=== PATIENT | female | born 1960 | race Caucasian/White ===

== ENCOUNTER 2018-06-30 07:01 | Emergency (ER) | payer OTHER, MEDICAID ==
[~2018-06-30] VITALS: Ht 170.2 cm; Wt 65.8 kg
[~2018-06-30 07:01] MED LIST: AMLO10TA88 PO; ARIP2TAB11 PO; ASPI-1155 PO; BUPR-120 PO; BUPR300T55 PO; DICL100G19 TP; KLO2 PO; LOVA20TA2 PO; METO50TA16 PO; OMEP20CA10 PO; ONDA4TAB5 PO; OXCA300O PO; PREMVAG VG; SUCR1TAB78 PO; TRAM50TA2 PO; ZOLP10TA6 PO; [UNRECOGNIZED DRUG - CODE] PO; [UNRECOGNIZED DRUG - CODE] PO
[2018-06-30 07:32] VITALS: BP_SYST 99
[2018-06-30] MEDS ORDERED: NACL 0.9% 1,000 ML IV ONE (07:50)
[2018-06-30 08:10] LABS: BASOPHILS % (AUTO) 0.4 % (0.0-2.0); EOSINOPHILS # (AUTO) 0.1 K/uL (0.0-0.4); EOSINOPHILS % (AUTO) 0.8 % (0.0-4.0); HEMATOCRIT 34.9 % (36-48); HEMOGLOBIN 11.6 g/dL (12.0-16.0); LYMPHOCYTES # (AUTO) 1.6 K/uL (1.0-5.5); LYMPHOCYTES % (AUTO) 18.1 % (20.5-51.5); MEAN CORPUSCULAR HEMOGLOBIN 32 pg (27-31); MEAN CORPUSCULAR HGB CONC 33 % (32-36); MEAN CORPUSCULAR VOLUME 95 fL (79.0-98.0); MONOCYTES # (AUTO) 0.6 K/uL (0.0-1.0); MONOCYTES % (AUTO) 7.1 % (1.7-9.3); NEUTROPHILS # (AUTO) 6.3 K/uL (1.8-7.7); NEUTROPHILS % (AUTO) 73.6 % (40.0-70.0); PLATELET COUNT (AUTO) 294 K/uL (130-430); RED BLOOD CELL COUNT(AUTO) 3.67 MIL/uL (4.2-6.2); RED CELL DISTRIBUTION WIDTH 12.9 % (9.0-15.0); WHITE BLOOD COUNT (AUTO) 8.6 K/uL (4.8-10.8)
[2018-06-30 08:24] LABS: CALCIUM 9.2 mg/dL (8.4-11.0); CREATININE 0.87 mg/dL (0.55-1.30)
[2018-06-30 08:28] LABS: INR 1.1 (0.8-1.2); PROTHROMBIN TIME 11.2 SECS (9.5-12.5)
[2018-06-30 08:29] LABS: ALBUMIN 3.7 g/dL (3.4-4.8); TOTAL BILIRUBIN 0.5 mg/dL (0.0-1.0)
[2018-06-30] MEDS ORDERED: SILVER NITRATE APPLICATOR 1 STICK STICK..EA. TP ONE ×2 (11:20→11:30)
[2018-06-30 11:45] VITALS: BP_SYST 99
== END 2018-06-30 11:45 | disposition home or self-care (01) ==
LOC: SED 07:01
DX: S31.41XA Laceration without foreign body of vagina and vulva, initial encounter (principal); N93.8 Other specified abnormal uterine and vaginal bleeding; I10 Essential (primary) hypertension; F32.9 Major depressive disorder, single episode, unspecified; F41.9 Anxiety disorder, unspecified; F20.9 Schizophrenia, unspecified; Z90.89 Acquired absence of other organs; Z88.1 Allergy status to other antibiotic agents; Z88.5 Allergy status to narcotic agent; Z88.6 Allergy status to analgesic agent; Z91.011 Allergy to milk products; Z79.899 Other long term (current) drug therapy; X58.XXXA Exposure to other specified factors, initial encounter; Y93.89 Activity, other specified; Y92.89 Other specified places as the place of occurrence of the external cause; Y99.8 Other external cause status
CPT/HCPCS: 36415; 76830; 76857; 80053; 83690; 85025; 85610; 85730; 96360; 99285; J7030

== ENCOUNTER 2018-11-28 07:25 | Emergency (ER) | payer OTHER, MEDICAID ==
[~2018-11-28] VITALS: Ht 170.2 cm; Wt 77.1 kg
[2018-11-28 07:25] VITALS: BP_SYST 94
[2018-11-28 09:00] VITALS: BP_SYST 83
== END 2018-11-28 09:00 | disposition home or self-care (01) ==
LOC: SED 07:25
DX: K91.841 Postprocedural hemorrhage of a digestive system organ or structure following other procedure (principal); I10 Essential (primary) hypertension; F32.9 Major depressive disorder, single episode, unspecified; F41.9 Anxiety disorder, unspecified; G43.909 Migraine, unspecified, not intractable, without status migrainosus; F90.9 Attention-deficit hyperactivity disorder, unspecified type; F20.9 Schizophrenia, unspecified; Z88.5 Allergy status to narcotic agent; Z88.6 Allergy status to analgesic agent; Z88.8 Allergy status to other drugs, medicaments and biological substances; Z91.011 Allergy to milk products; Z79.82 Long term (current) use of aspirin; Z79.899 Other long term (current) drug therapy
CPT/HCPCS: 99283

== ENCOUNTER 2019-07-02 15:23 | Inpatient (IN) | payer OTHER, MEDICAID ==
[~2019-07-02] VITALS: Ht 170.2 cm; Wt 70.3 kg
[~2019-07-02 15:23] MED LIST changes: -OMEP20CA10 PO; +OMEP20CA11 PO
[2019-07-02 17:56] VITALS: BP_SYST 136
[2019-07-02] MEDS ORDERED: ACETAMINOPHEN/CODEINE 300 MG-30 MG TABLET PO PRN (18:45)
[2019-07-02] MEDS ORDERED: DIPHENOXYLATE HCL/ATROP SULF 2.5 MG TAB PO PRN (18:45)
[2019-07-02] MEDS ORDERED: COMMUNICATION ORDER XX ONE (19:15)
[2019-07-02] MEDS ORDERED: ONDANSETRON 4 MG ODT TAB PO SCH (19:15)
[2019-07-02] MEDS ORDERED: ONDANSETRON HCL 4 MG/2 ML VIAL IVP PRN (19:30)
[2019-07-02 19:53] LABS: MEAN CORPUSCULAR VOLUME 67 fL (79.0-98.0); RED CELL DISTRIBUTION WIDTH 18.6 % (9.0-15.0); WHITE BLOOD COUNT (AUTO) 5.1 K/uL (4.8-10.8)
[2019-07-02 20:00] LABS: HEMATOCRIT 23.1 % (36-48); MEAN CORPUSCULAR HEMOGLOBIN 21 pg (27-31); MEAN CORPUSCULAR HGB CONC 31 % (32-36); PLATELET COUNT (AUTO) 279 K/uL (130-430); RED BLOOD CELL COUNT(AUTO) 3.45 MIL/uL (4.2-6.2)
[2019-07-02 20:09] LABS: HEMOGLOBIN 7.1 g/dL (12.0-16.0)
[2019-07-02 20:11] LABS: ALBUMIN 3.6 g/dL (3.4-4.8); CALCIUM 8.6 mg/dL (8.4-11.0); CREATININE 0.84 mg/dL (0.55-1.30); POTASSIUM 3.7 mmol/L (3.5-5.1); TOTAL BILIRUBIN 0.3 mg/dL (0.0-1.0)
[2019-07-02 20:27] LABS: TOTAL IRON BIND. CAPACITY 408 ug/dL (250-450)
[2019-07-02 20:30] LABS: BAND % (MANUAL) 1 % (0-6); BASOPHILS % (MANUAL) 0 % (0-2); EOSINOPHILS % (MANUAL) 6 % (0-7); LYMPHOCYTES % (MANUAL) 26 % (20-46); MONOCYTES % (MANUAL) 6 % (0-11)
[2019-07-02] MEDS: CONJUGATED ESTROGENS VAGINAL CREAM 42.5 GM .APPL VG SCH ×2 (21:00→22:24)
[2019-07-02 21:30] VITALS: BP_SYST 131
[2019-07-02] MEDS: PANTOPRAZOLE SODIUM 40 MG/VIAL (PROTONIX) IVP SCH (22:21)
[2019-07-02] MEDS: clonazePAM 0.5 MG TABLET PO SCH (22:22)
[2019-07-02] MEDS: METOPROLOL TARTRATE 50 MG TABLET PO SCH (22:22)
[2019-07-02] MEDS: buPROPion HCL 150 MG XL TAB PO SCH (22:23)
[2019-07-02] MEDS: ZOLPIDEM TARTRATE 5 MG TABLET PO SCH (22:23)
[2019-07-02] MEDS: traMADol HCL HCL 50 MG TABLET (ULTRAM) PO SCH (22:23)
[2019-07-03 01:41] VITALS: BP_SYST 121
[2019-07-03] MEDS: FLU VACC QS2019-20 36MOS UP/PF 60 MCG/0.5 ML SYRINGE I.M. PRN (05:09)
[2019-07-03] MEDS: SUCRALFATE 1 GM TABLET PO SCH ×3 (06:15→17:54)
[2019-07-03] MEDS: PANTOPRAZOLE SODIUM 40 MG/VIAL (PROTONIX) IVP SCH ×2 (10:12→20:41)
[2019-07-03] MEDS: buPROPion HCL 150 MG XL TAB PO SCH ×2 (10:13→20:43)
[2019-07-03] MEDS: MULTIVITAMINS TAB 1 TABLET PO SCH (10:13)
[2019-07-03] MEDS: OXcarbazepine 150 MG TABLET(TRILEPTAL) PO SCH (10:13)
[2019-07-03] MEDS: clonazePAM 0.5 MG TABLET PO SCH ×3 (10:13→20:43)
[2019-07-03] MEDS: METOPROLOL TARTRATE 50 MG TABLET PO SCH ×2 (10:14→20:42)
[2019-07-03] MEDS: amLODIPine BESYLATE 10 MG TABLET PO SCH (10:14)
[2019-07-03] MEDS: traMADol HCL HCL 50 MG TABLET (ULTRAM) PO SCH ×3 (10:15→20:42)
[2019-07-03 12:32] VITALS: BP_SYST 115
[2019-07-03] MEDS: ARIPiprazole 2 MG TAB PO SCH (13:30)
[2019-07-03 16:35] VITALS: BP_SYST 112
[2019-07-03] MEDS: ATORVASTATIN 10 MG TABLET PO SCH (17:54)
[2019-07-03] MEDS ORDERED: LOVASTATIN 20 MG TABLET PO SCH (18:00)
[2019-07-03 20:07] VITALS: BP_SYST 105
[2019-07-03] MEDS: SOD FERRIC GLUC COMPLEX/SUC 125 MG in NS 100 ML IV SCH (20:41)
[2019-07-03] MEDS: CONJUGATED ESTROGENS VAGINAL CREAM 42.5 GM .APPL VG SCH (20:43)
[2019-07-03] MEDS: ZOLPIDEM TARTRATE 5 MG TABLET PO SCH (20:43)
[2019-07-04 00:17] VITALS: BP_SYST 117
[2019-07-04] MEDS: SUCRALFATE 1 GM TABLET PO SCH ×3 (06:52→17:44)
[2019-07-04 07:41] LABS: CALCIUM 8.7 mg/dL (8.4-11.0); CREATININE 0.66 mg/dL (0.55-1.30); PHOSPHORUS 4.5 mg/dL (2.7-4.5); POTASSIUM 4.4 mmol/L (3.5-5.1)
[2019-07-04 07:53] LABS: BASOPHILS # (AUTO) 0.1 K/uL (0.0-0.2); BASOPHILS % (AUTO) 0.9 % (0.0-2.0); EOSINOPHILS # (AUTO) 0.1 K/uL (0.0-0.4); EOSINOPHILS % (AUTO) 2.3 % (0.0-4.0); HEMATOCRIT 30.4 % (36-48); HEMOGLOBIN 9.6 g/dL (12.0-16.0); LYMPHOCYTES # (AUTO) 2.2 K/uL (1.0-5.5); LYMPHOCYTES % (AUTO) 38.4 % (20.5-51.5); MEAN CORPUSCULAR HEMOGLOBIN 23 pg (27-31); MEAN CORPUSCULAR HGB CONC 32 % (32-36); MEAN CORPUSCULAR VOLUME 72 fL (79.0-98.0); MONOCYTES # (AUTO) 0.6 K/uL (0.0-1.0); MONOCYTES % (AUTO) 11.2 % (1.7-9.3); NEUTROPHILS # (AUTO) 2.7 K/uL (1.8-7.7); NEUTROPHILS % (AUTO) 47.2 % (40.0-70.0); PLATELET COUNT (AUTO) 258 K/uL (130-430); RED BLOOD CELL COUNT(AUTO) 4.24 MIL/uL (4.2-6.2); RED CELL DISTRIBUTION WIDTH 22.4 % (9.0-15.0); WHITE BLOOD COUNT (AUTO) 5.7 K/uL (4.8-10.8)
[2019-07-04 08:15] VITALS: BP_SYST 123
[2019-07-04] MEDS: PANTOPRAZOLE SODIUM 40 MG/VIAL (PROTONIX) IVP SCH ×2 (08:47→22:22)
[2019-07-04] MEDS: clonazePAM 0.5 MG TABLET PO SCH ×3 (08:47→22:25)
[2019-07-04] MEDS: traMADol HCL HCL 50 MG TABLET (ULTRAM) PO SCH ×3 (08:48→22:24)
[2019-07-04] MEDS: OXcarbazepine 150 MG TABLET(TRILEPTAL) PO SCH (08:48)
[2019-07-04] MEDS: MULTIVITAMINS TAB 1 TABLET PO SCH (08:48)
[2019-07-04] MEDS: buPROPion HCL 150 MG XL TAB PO SCH ×2 (08:48→22:26)
[2019-07-04] MEDS: amLODIPine BESYLATE 10 MG TABLET PO SCH (08:48)
[2019-07-04] MEDS: METOPROLOL TARTRATE 50 MG TABLET PO SCH ×2 (08:49→22:24)
[2019-07-04 12:00] VITALS: BP_SYST 110
[2019-07-04] MEDS: ARIPiprazole 2 MG TAB PO SCH (14:32)
[2019-07-04 16:00] VITALS: BP_SYST 117
[2019-07-04] MEDS: ATORVASTATIN 10 MG TABLET PO SCH (17:44)
[2019-07-04] MEDS: SOD FERRIC GLUC COMPLEX/SUC 125 MG in NS 100 ML IV SCH (18:55)
[2019-07-04] MEDS: ZOLPIDEM TARTRATE 5 MG TABLET PO SCH (22:25)
[2019-07-04] MEDS: CONJUGATED ESTROGENS VAGINAL CREAM 42.5 GM .APPL VG SCH (22:33)
[2019-07-05 00:37] VITALS: BP_SYST 117
[2019-07-05] MEDS: SUCRALFATE 1 GM TABLET PO SCH ×3 (06:25→17:05)
[2019-07-05 07:06] LABS: CALCIUM 8.4 mg/dL (8.4-11.0); CREATININE 0.72 mg/dL (0.55-1.30); POTASSIUM 4.5 mmol/L (3.5-5.1)
[2019-07-05 07:08] LABS: BASOPHILS # (AUTO) 0.1 K/uL (0.0-0.2); BASOPHILS % (AUTO) 1.3 % (0.0-2.0); EOSINOPHILS # (AUTO) 0.2 K/uL (0.0-0.4); EOSINOPHILS % (AUTO) 3.6 % (0.0-4.0); HEMATOCRIT 32.7 % (36-48); HEMOGLOBIN 10.3 g/dL (12.0-16.0); LYMPHOCYTES # (AUTO) 1.5 K/uL (1.0-5.5); LYMPHOCYTES % (AUTO) 29.4 % (20.5-51.5); MEAN CORPUSCULAR HEMOGLOBIN 23 pg (27-31); MEAN CORPUSCULAR HGB CONC 32 % (32-36); MEAN CORPUSCULAR VOLUME 72 fL (79.0-98.0); MONOCYTES # (AUTO) 0.7 K/uL (0.0-1.0); MONOCYTES % (AUTO) 14.3 % (1.7-9.3); NEUTROPHILS # (AUTO) 2.6 K/uL (1.8-7.7); NEUTROPHILS % (AUTO) 51.4 % (40.0-70.0); PLATELET COUNT (AUTO) 291 K/uL (130-430); RED BLOOD CELL COUNT(AUTO) 4.58 MIL/uL (4.2-6.2); RED CELL DISTRIBUTION WIDTH 22.9 % (9.0-15.0); WHITE BLOOD COUNT (AUTO) 5.1 K/uL (4.8-10.8)
[2019-07-05 08:00] VITALS: BP_SYST 128
[2019-07-05] MEDS: PANTOPRAZOLE SODIUM 40 MG/VIAL (PROTONIX) IVP SCH ×2 (08:41→21:58)
[2019-07-05] MEDS: DICLOFENAC SODIUM 1% TP SCH ×2 (09:00→21:00)
[2019-07-05] MEDS: amLODIPine BESYLATE 10 MG TABLET PO SCH ×2 (09:00→14:44)
[2019-07-05 11:11] VITALS: BP_SYST 143
[2019-07-05] MEDS ORDERED: MIDAZOLAM HCL 5 MG/5 ML VIAL ONE ×2 (11:24→11:25)
[2019-07-05] MEDS ORDERED: fentaNYL CITRATE/PF 100 MCG/2 ML AMP ONE ×2 (11:24)
[2019-07-05] MEDS ORDERED: BENZOCAINE 20% 0.5mL UD SPRAY MM ONE (11:25)
[2019-07-05] MEDS ORDERED: SIMETHICONE 40 MG/0.6 ML ML ONE (11:25)
[2019-07-05] MEDS ORDERED: GOLYTELY / COLYTE SOLUTION 4 LITERS PO ONE (13:30)
[2019-07-05] MEDS ORDERED: MIDAZOLAM HCL 5 MG/ML VIAL (VERSED) IV ONE (14:30)
[2019-07-05] MEDS ORDERED: fentaNYL CITRATE/PF 100 MCG/2 ML AMP IVP ONE (14:30)
[2019-07-05 14:42] VITALS: BP_SYST 112
[2019-07-05] MEDS: MULTIVITAMINS TAB 1 TABLET PO SCH (14:43)
[2019-07-05] MEDS: METOPROLOL TARTRATE 50 MG TABLET PO SCH ×2 (14:44→21:57)
[2019-07-05] MEDS: buPROPion HCL 150 MG XL TAB PO SCH ×2 (14:44→22:26)
[2019-07-05] MEDS: traMADol HCL HCL 50 MG TABLET (ULTRAM) PO SCH ×2 (14:45→21:57)
[2019-07-05] MEDS: OXcarbazepine 150 MG TABLET(TRILEPTAL) PO SCH (14:46)
[2019-07-05] MEDS: clonazePAM 0.5 MG TABLET PO SCH ×2 (14:46→21:56)
[2019-07-05] MEDS: ARIPiprazole 2 MG TAB PO SCH (14:54)
[2019-07-05 16:57] VITALS: BP_SYST 111
[2019-07-05] MEDS: ATORVASTATIN 10 MG TABLET PO SCH (17:05)
[2019-07-05] MEDS: SOD FERRIC GLUC COMPLEX/SUC 125 MG in NS 100 ML IV SCH (18:09)
[2019-07-05 20:00] VITALS: BP_SYST 142
[2019-07-05] MEDS: CONJUGATED ESTROGENS VAGINAL CREAM 42.5 GM .APPL VG SCH (21:00)
[2019-07-05] MEDS: ZOLPIDEM TARTRATE 5 MG TABLET PO SCH (21:58)
[2019-07-06 00:15] VITALS: BP_SYST 141
[2019-07-06 07:45] VITALS: BP_SYST 119
[2019-07-06] MEDS: PANTOPRAZOLE SODIUM 40 MG/VIAL (PROTONIX) IVP SCH ×2 (08:30→20:55)
[2019-07-06] MEDS: DICLOFENAC SODIUM 1% TP SCH ×2 (09:00→21:00)
[2019-07-06] MEDS ORDERED: fentaNYL CITRATE/PF 100 MCG/2 ML AMP ONE ×2 (11:18→11:19)
[2019-07-06] MEDS ORDERED: MIDAZOLAM HCL 5 MG/5 ML VIAL ONE ×2 (11:19→11:20)
[2019-07-06] MEDS ORDERED: SIMETHICONE 40 MG/0.6 ML ML ONE (11:20)
[2019-07-06] MEDS: SUCRALFATE 1 GM TABLET PO SCH ×2 (11:30→17:09)
[2019-07-06 12:33] VITALS: BP_SYST 152
[2019-07-06] MEDS: clonazePAM 0.5 MG TABLET PO SCH ×2 (14:34→20:57)
[2019-07-06] MEDS: MULTIVITAMINS TAB 1 TABLET PO SCH (14:35)
[2019-07-06] MEDS: OXcarbazepine 150 MG TABLET(TRILEPTAL) PO SCH (14:35)
[2019-07-06] MEDS: traMADol HCL HCL 50 MG TABLET (ULTRAM) PO SCH ×2 (14:35→20:57)
[2019-07-06] MEDS: buPROPion HCL 150 MG XL TAB PO SCH ×2 (14:42→20:56)
[2019-07-06] MEDS: METOPROLOL TARTRATE 50 MG TABLET PO SCH ×2 (14:42→20:56)
[2019-07-06] MEDS: ARIPiprazole 2 MG TAB PO SCH (14:43)
[2019-07-06] MEDS: amLODIPine BESYLATE 10 MG TABLET PO SCH (14:43)
[2019-07-06 17:09] VITALS: BP_SYST 132
[2019-07-06] MEDS: ATORVASTATIN 10 MG TABLET PO SCH (17:09)
[2019-07-06] MEDS: SOD FERRIC GLUC COMPLEX/SUC 125 MG in NS 100 ML IV SCH (17:57)
[2019-07-06] MEDS: ZOLPIDEM TARTRATE 5 MG TABLET PO SCH (20:55)
[2019-07-06] MEDS: CONJUGATED ESTROGENS VAGINAL CREAM 42.5 GM .APPL VG SCH (21:00)
[2019-07-07 00:02] VITALS: BP_SYST 92
[2019-07-07] MEDS: SUCRALFATE 1 GM TABLET PO SCH ×3 (07:00→16:50)
[2019-07-07] MEDS: DICLOFENAC SODIUM 1% TP SCH (09:00)
[2019-07-07] MEDS: ARIPiprazole 2 MG TAB PO SCH (09:00)
[2019-07-07] MEDS ORDERED: GASTROGRAFIN 120 ML ONE (09:16)
[2019-07-07] MEDS: PANTOPRAZOLE SODIUM 40 MG/VIAL (PROTONIX) IVP SCH (10:54)
[2019-07-07] MEDS: clonazePAM 0.5 MG TABLET PO SCH ×2 (10:55→15:47)
[2019-07-07] MEDS: METOPROLOL TARTRATE 50 MG TABLET PO SCH (10:55)
[2019-07-07] MEDS: OXcarbazepine 150 MG TABLET(TRILEPTAL) PO SCH (10:56)
[2019-07-07] MEDS: MULTIVITAMINS TAB 1 TABLET PO SCH (10:56)
[2019-07-07] MEDS: amLODIPine BESYLATE 10 MG TABLET PO SCH (10:56)
[2019-07-07] MEDS: traMADol HCL HCL 50 MG TABLET (ULTRAM) PO SCH ×2 (10:57→15:47)
[2019-07-07] MEDS: buPROPion HCL 150 MG XL TAB PO SCH (10:57)
[2019-07-07] MEDS ORDERED: CHOLECALCIFEROL (VITAMIN D3) 2,000 UNIT TABLET PO SCH (11:00)
[2019-07-07] MEDS ORDERED: CHOLECALCIFEROL (VITAMIN D3) 2,000 UNIT TABLET PO ONE (11:30)
[2019-07-07 15:23] VITALS: BP_SYST 104
[2019-07-07 16:12] VITALS: BP_SYST 104
[2019-07-07] MEDS: FLU VACC QS2019-20 36MOS UP/PF 60 MCG/0.5 ML SYRINGE I.M. PRN (16:24)
[2019-07-07] MEDS: SOD FERRIC GLUC COMPLEX/SUC 125 MG in NS 100 ML IV SCH (16:50)
[2019-07-07] MEDS: ATORVASTATIN 10 MG TABLET PO SCH (17:08)
[2019-07-08] MEDS ORDERED: CHOLECALCIFEROL (VITAMIN D3) 2,000 UNIT TABLET PO SCH (09:00)
== END 2019-07-07 19:05 | disposition home or self-care (01) | DRG 393 ==
LOC: SMU 16:36
PROVIDERS: ADMIT Family Medicine; ATTEND Family Medicine
PROC: 30233N1 Transfusion of Nonautologous Red Blood Cells into Peripheral Vein, Percutaneous Approach (ICD-10-PCS; 2019-07-03)
PROC: 0DB68ZX Excision of Stomach, Via Natural or Artificial Opening Endoscopic, Diagnostic (ICD-10-PCS; 2019-07-05)
PROC: 0DJD8ZZ Inspection of Lower Intestinal Tract, Via Natural or Artificial Opening Endoscopic (ICD-10-PCS; principal; 2019-07-06 11:52)
DX: K64.8 Other hemorrhoids (principal); K29.71 Gastritis, unspecified, with bleeding; E87.1 Hypo-osmolality and hyponatremia; M19.90 Unspecified osteoarthritis, unspecified site; I10 Essential (primary) hypertension; E78.5 Hyperlipidemia, unspecified; D50.9 Iron deficiency anemia, unspecified; K64.4 Residual hemorrhoidal skin tags; K44.9 Diaphragmatic hernia without obstruction or gangrene; F31.9 Bipolar disorder, unspecified; Z88.8 Allergy status to other drugs, medicaments and biological substances; Z88.5 Allergy status to narcotic agent; Z79.899 Other long term (current) drug therapy
CPT/HCPCS: 36415; 43239; 45378; 74270-TC; 76700-TC; 76830-TC; 76857; 80048; 80053; 82272; 83540-TC; 83550-TC; 83735-TC; 84100-TC; 85007; 85025; 85027; 86886; 86900; 86901; 86920; 87081; 88305; 88313; C9113; J2250; J2916; J3010; J7040; J7050; P9021; Q9963

== ENCOUNTER 2021-09-17 08:11 | Emergency (ER) | payer OTHER, MEDICAID, SELFPAY ==
[~2021-09-17] VITALS: Ht 170.2 cm; Wt 85.3 kg
[~2021-09-17 08:11] MED LIST changes: -ARIP2TAB11 PO; +ARIP2TAB20 PO; -ASPI-1155 PO; -OMEP20CA11 PO; +OMEP20CA15 PO
[2021-09-17 08:15] VITALS: BP_SYST 119
[2021-09-17] MEDS ORDERED: IBUP-1969 PO (09:59)
[2021-09-17] MEDS ORDERED: HYDR-3917 PO ×3 (09:59→10:30)
[2021-09-17] MEDS ORDERED: HYDROcodone/ACETAMIN 10-325 MG TAB PO ONE (11:45)
[2021-09-17] MEDS ORDERED: IBUPROFEN 600 MG TABLET PO ONE (11:45)
[2021-09-17 12:02] VITALS: BP_SYST 133
== END 2021-09-17 12:03 | disposition home or self-care (01) ==
LOC: SED 08:11
DX: S52.615A Nondisplaced fracture of left ulna styloid process, initial encounter for closed fracture (principal); S52.572A Other intraarticular fracture of lower end of left radius, initial encounter for closed fracture; I10 Essential (primary) hypertension; G43.909 Migraine, unspecified, not intractable, without status migrainosus; F32.9 Major depressive disorder, single episode, unspecified; F90.9 Attention-deficit hyperactivity disorder, unspecified type; Z88.6 Allergy status to analgesic agent; Z88.8 Allergy status to other drugs, medicaments and biological substances; Z88.9 Allergy status to unspecified drugs, medicaments and biological substances; W18.30XA Fall on same level, unspecified, initial encounter; Y92.009 Unspecified place in unspecified non-institutional (private) residence as the place of occurrence of the external cause; Y93.9 Activity, unspecified; Y99.9 Unspecified external cause status
CPT/HCPCS: 99283